=== PATIENT | male | born 1965 | race Caucasian/White ===

== ENCOUNTER 2024-01-01 05:08 | Emergency (ER) | payer OTHER ==
[~2024-01-01] VITALS: Ht 170.2 cm; Wt 81.6 kg
[2024-01-01] MEDS ORDERED: KETOROLAC TROMETHAMINE 60 MG INJ IM ONE (06:20)
[2024-01-01] MEDS ORDERED: INDO-13 PO (06:25)
[2024-01-01] MEDS: KETOROLAC TROMETHAMINE 60 MG INJ IM ONE (06:26)
[2024-01-01] MEDS ORDERED: AMLO-212 PO (06:27)
[2024-01-01] MEDS ORDERED: AMLODIPINE 5 MG TABLET ONE (06:28)
[2024-01-01] MEDS: AMLODIPINE 5 MG TABLET PO ONE (06:33)
[2024-01-01 06:41] VITALS: BP 178/103; TEMP 98; O2SAT 96
== END 2024-01-01 06:37 | disposition home or self-care (01) ==
LOC: ER 05:08
DX: M43.6 Torticollis (principal); I10 Essential (primary) hypertension; Z79.899 Other long term (current) drug therapy
CPT/HCPCS: 99283; 96372; J1885; A4606; A4663